=== PATIENT | female | born 1995 | race Caucasian/White ===

== ENCOUNTER → 2016-07-08 | Outpatient (CLI) | payer OTHER | END | disposition home or self-care (01) | LOC: MW.MNT 15:18 | PROVIDERS: ATTEND Obstetrics & Gynecology | DX: O24.419 Gestational diabetes mellitus in pregnancy, unspecified control (principal) | CPT/HCPCS: 97802 ==

== ENCOUNTER 2016-09-05 09:49 | Inpatient (IN) | payer OTHER ==
[2016-09-05] MEDS ORDERED: Sodium Chloride 0.9% 2.5 ML Syringe FLUSH PRN ×2 (10:14→13:36)
[2016-09-05] MEDS ORDERED: ceFAZolin 2 GM in Premix Bag 1 BAG IV ONE (10:14)
[2016-09-05] MEDS ORDERED: Sodium Chloride 0.9% 10 ML Syringe FLUSH PRN ×2 (10:14→13:36)
[2016-09-05] MEDS ORDERED: Citric Acid/Sodium Citrate Solution 30 ML Cup PO SCH (10:15)
[2016-09-05] MEDS ORDERED: Lactated Ringers 1,000 ML IV SCH ×2 (10:15→13:45)
[2016-09-05] MEDS ORDERED: ceFAZolin 1 GM Vial ONE (11:31)
[2016-09-05] MEDS ORDERED: Sodium Chloride 0.9% 20 ML ONE (11:32)
[2016-09-05] MEDS ORDERED: Oxytocin 10 Units/1 ML SDV ONE (11:32)
[2016-09-05] MEDS ORDERED: ePHEDrine 50 MG/ML SDV ONE (11:32)
[2016-09-05] MEDS ORDERED: Ondansetron 4 MG/2 ML SDV ONE (11:32)
[2016-09-05] MEDS ORDERED: Water For Injection, Sterile 20 ML ONE (11:35)
[2016-09-05] MEDS ORDERED: Morphine PF 10 MG/10 ML SDV ONE (11:35)
[2016-09-05] MEDS ORDERED: Acetaminophen/oxyCODONE 325-5 MG Tab PO PRN ×2 (12:35→13:36)
[2016-09-05] MEDS ORDERED: diphenhydrAMINE 50 MG/ML SDV IVPUSH PRN ×2 (12:36→13:36)
[2016-09-05] MEDS ORDERED: Nalbuphine 10 MG/1 ML Vial IVPUSH PRN (12:36)
[2016-09-05] MEDS ORDERED: Naloxone 0.4 MG/ML Syringe IVPUSH PRN (12:36)
[2016-09-05] MEDS ORDERED: Carboprost Tromethamine 250 MCG/1 ML Amp ONE (12:39)
[2016-09-05] MEDS ORDERED: Methylergonovine 0.2 MG/1 ML Amp ONE (12:39)
[2016-09-05] MEDS ORDERED: Metoclopramide 10 MG/2 ML SDV ONE (12:50)
--- NOTE | 2016-09-05 12:53 | PCM.PREANE ---
Preanesthetic Assessment - Anesthesia/Transfusion/Family Hx Anesthesia History: No Prior Anesthesia Family History of Anesthesia Reaction: No Transfusion History: No Prior Transfusion(s) Intubation History: Unknown - Review of Systems General: No Symptoms Pulmonary: No Symptoms Cardiovascular: No Symptoms Gastrointestinal: No symptoms Neurological: No Symptoms Other: Reports: None - Physical Assessment Height: 1.7 m Weight: 94.801 kg ASA Class: 2 Mental Status: Alert & Oriented x3 Airway Class: Mallampati = 1 Dentition: Reports: Normal Dentition Thyro-Mental Finger Breadths: 3 Mouth Opening Finger Breadths: 3 ROM/Head Extension: Full Lungs: Clear to auscultation, Normal respiratory effort Cardiovascular: Regular Rate, Regular Rhythm - Lab Values: Laboratory Last Values WBC 11.16 K/uL (4.0-11.0) H 09/05/16 10:24 RBC 4.01 M/uL (4.30-5.90) L 09/05/16 10:24 Hgb 12.0 g/dL (12.0-16.0) 09/05/16 10:24 Hct 36.0 % (36.0-46.0) 09/05/16 10:24 MCV 89.8 fL (80.0-98.0) 09/05/16 10:24 MCH 29.9 pg (27.0-32.0) 09/05/16 10:24 MCHC 33.3 g/dL (31.0-37.0) 09/05/16 10:24 RDW Std Deviation 48.4 fl (28.0-62.0) 09/05/16 10:24 RDW Coeff of Marcelina 15 % (11.0-15.0) 09/05/16 10:24 Plt Count 253 K/uL (150-400) 09/05/16 10:24 MPV 10.20 fL (7.40-12.00) 09/05/16 10:24 Nucleated RBC % 0.0 /100WBC 09/05/16 10:24 Nucleated RBCs # 0 K/uL 09/05/16 10:24 POC Glucose 79 mg/dL (60-110) 09/05/16 10:51 Blood Type A POSITIVE 09/05/16 10:24 Antibody Screen NEGATIVE 09/05/16 10:24 - Allergies Allergies/Adverse Reactions: Allergies Allergy/AdvReac Type Severity Reaction Status Date / Time No Known Allergies Allergy Verified 09/03/16 08:29 - Blood Blood Available: No - Anesthesia Plan Pre-Op Medication Ordered: None - Acknowledgements Anesthesia Type Planned: Spinal Pt an Appropriate Candidate for the Planned Anesthesia: Yes Alternatives and Risks of Anesthesia Discussed w Pt/Guardian: Yes Pt/Guardian Understands and Agrees with Anesthesia Plan: Yes 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: Endocrine/Metabolic History: Reports: Diabetes, Gestational, Obesity/BMI 30+ - Past Surgical History Head Surgeries/Procedures: Reports: None - SUBSTANCE USE Smoking Status *Q: Former Smoker Tobacco Use Within Last Twelve Months: Cigarettes Recreational Drug Use History: No - HOME MEDS Home Medications: Home Meds Ferrous Sulfate [Iron] 2 tab PO DAILY 09/03/16 [History] PNV95/Ferrous Fumarate/FA [ Vitamin Tablet] 1 tab PO DAILY 09/03/16 [ History] glyBURIDE [Glyburide] 2.5 mg PO BID 09/03/16 [History] - CURRENT (IN HOUSE) MEDS Current Meds: Current Medications Citric Acid/Sodium Citrate (Bicitra Solution) 30 ml PO .ONCE JEREMY Diphenhydramine HCl (Benadryl) 25 mg IVPUSH Q4H PRN PRN Reason: Pruritis Stop: 09/06/16 12:36 Lactated Ringer's (Ringers, Lactated) 1,000 mls @ 500 mls/hr IV .BOLUS JEREMY Last Admin: 09/05/16 10:30 Dose: 500 mls/hr Nalbuphine HCl (Nubain) 2.5 mg IVPUSH Q3H PRN PRN Reason: Pruritis Stop: 09/06/16 12:36 Naloxone HCl (Narcan) 0.1 mg IVPUSH ONETIME PRN PRN Reason: RR<6 WITH STIMULATION Stop: 09/06/16 12:37 Oxycodone/Acetaminophen (Percocet 325-5 Mg) 2 tab PO ONETIME PRN PRN Reason: Breakthrough Pain Stop: 09/06/16 12:30 Sodium Chloride (Saline Flush) 10 ml FLUSH ASDIRECTED PRN PRN Reason: Keep Vein Open Sodium Chloride (Saline Flush) 2.5 ml FLUSH ASDIRECTED PRN PRN Reason: Keep Vein Open Discontinued Medications Carboprost Tromethamine (Hemabate Ds) Confirm Administered Dose 250 mcg .ROUTE .STK-MED ONE Stop: 09/05/16 12:40 Cefazolin Sodium (Ancef) Confirm Administered Dose 2 gm .ROUTE .STK-MED ONE Stop: 09/05/16 11:32 Ephedrine Sulfate (Ephedrine Sulfate) Confirm Administered Dose 50 mg .ROUTE .STK-MED ONE Stop: 09/05/16 11:33 Cefazolin Sodium/Dextrose 2 gm (/ Premix) 50 mls @ 100 mls/hr IV ONETIME ONE Stop: 09/05/16 10:43 Sodium Chloride (Normal Saline) Confirm Administered Dose 20 mls @ as directed .ROUTE .STK-MED ONE Stop: 09/05/16 11:33 Sterile Water (Sterile Water For Injection) Confirm Administered Dose 20 mls @ as directed .ROUTE .STK-MED ONE Stop: 09/05/16 11:36 Methylergonovine Maleate (Methergine) Confirm Administered Dose 0.2 mg .ROUTE .STK-MED ONE Stop: 09/05/16 12:40 Morphine Sulfate (Duramorph Pf) Confirm Administered Dose 10 mg .ROUTE .STK-MED ONE Stop: 09/05/16 11:36 Ondansetron HCl (Zofran) Confirm Administered Dose 4 mg .ROUTE .STK-MED ONE Stop: 09/05/16 11:33 Oxytocin (Pitocin) Confirm Administered Dose 20 unit .ROUTE .STK-MED ONE Stop: 09/05/16 11:33
[2016-09-05] MEDS ORDERED: Lanolin 100% Cream 7 GM Tube TOP PRN (13:36)
[2016-09-05] MEDS ORDERED: Ibuprofen 800 MG Tab PO PRN (13:36)
[2016-09-05] MEDS ORDERED: Bisacodyl 10 MG Supp RECTAL PRN (13:36)
[2016-09-05] MEDS ORDERED: Ondansetron 4 MG/2 ML SDV IV PRN (13:36)
[2016-09-05] MEDS: fentaNYL 100 MCG/2 ML SDV IVPUSH PRN ×2 (13:41→13:51)
[2016-09-05] MEDS: Ketorolac 30 MG/ML SDV IVPUSH SCH ×2 (13:48→20:26)
--- NOTE | 2016-09-05 13:48 | PCM.OPNOTE ---
- General Post-Op/Procedure Note Date of Surgery/Procedure: 09/05/16 Operative Procedure(s): Primary section Findings: Maximilian Breech presentation. Female, Wt 3860grams, Apgars 9 and 9. Normal appearing uterus, tubes and ovaries. Pre Op Diagnosis: Breech Presentation at term Post-Op Diagnosis: Same Anesthesia Technique: Spinal Primary Surgeon: Ana Moon Fluid Replacement, Intraop: 1,200 Output, Urine Amount: 200 EBL in mLs: 700 Complications: None Condition: Good Free Text/Narrative:: Intake & Output 09/04/16 09/05/16 09/05/16 22:59 06:59 14:59 Output Total 200 Balance -200
--- NOTE | 2016-09-05 13:51 | PCM.POSTAN ---
POST ANESTHESIA ASSESSMENT - MENTAL STATUS Mental Status: alert, oriented - VITAL SIGNS Pulse Rate: 78 SaO2: 98 Resp Rate: 14 Blood Pressure: 138/77 - RESPIRATORY Respiratory Status: respiratory rate WNL, airway patent, O2 saturation stable - CARDIOVASCULAR CV Status: pulse rate WNL, blood pressure stable - GASTROINTESTINAL GI Status: no symptoms - PAIN Pain Score: 4 (will receive one additional dose prior to discharge from PACU) - POST OP HYDRATION Hydration Status: adequate & stable - OBSERVATIONS Free Text/Narrative:: Pt not having any nausea postop (significant intraop). Pain significantly better with IV Fentanyl - will give one more dose prior to discharge from PACU. Pt stable.
[2016-09-05] MEDS: Docusate Sodium 100 MG Cap PO SCH (20:27)
--- NOTE | 2016-09-06 00:49 | OR ---
SURGEON: Ana Moon MD DATE OF PROCEDURE: 09/05/2016 PREOPERATIVE DIAGNOSES: 1. Term at 39 weeks gestation. 2. Malpresentation at term, breech presentation. 3. Gestational diabetes, Type A2- controlled on glyburide. POSTOPERATIVE DIAGNOSES: 1. Term at 39 weeks gestation. 2. Malpresentation at term, breech presentation. 3. Gestational diabetes, Type A2- controlled on glyburide. 4. Delivered. PROCEDURE: Primary low transverse section via Pfannenstiel. ANESTHESIA: Spinal. ESTIMATED BLOOD LOSS: 700 mL. IV FLUIDS: 1200 mL of crystalloid. URINE OUTPUT: 200 mL. COMPLICATIONS: None. DISPOSITION: Stable to recovery room. FINDINGS: Female , elizabeth breech presentation. Weight 3860 g. Apgars 9 and 9 at 1 and 5 minutes respectively. Grossly normal uterus, tubes, and ovaries. Grossly normal placenta with 3-vessel cord. INDICATION: Paula is a primigravida at 39 weeks gestation, who presented today for primary low transverse section for breech presentation at term, declined external cephalic version. was also complicated by gestational diabetes, controlled on oral hypoglycemics. DESCRIPTION OF PROCEDURE: The patient was taken to the operating room, where spinal anesthesia was performed and found to be adequate. She was then placed in dorsal lithotomy position with leftward tilt, prepped and draped in a normal sterile fashion for section. Ancef 2 g were given. Appropriate time-out was held. Pfannenstiel skin incision was made with a scalpel and carried through to the underlying fascia with the Bovie scored in the midline and the fascia was extended laterally with the Bovie. The superior aspect of the fascial incision was grasped with 2 Josee clamps, elevated, underlying rectus muscle was dissected off with the Bovie. Attention was turned to the inferior aspect of the fascial incision, which in similar fashion was picked up with 2 Josee clamps, elevated, and rectus muscle was dissected off with the Bovie. The rectus muscle was in the midline and the parietal peritoneum was reached. This was entered sharply with the Metzenbaum scissors and extended upwards and downwards with good visualization of the bladder and other internal organs. It was further extended laterally by stretching. A bladder blade was inserted. The vesicouterine peritoneum was identified, picked up with the pickups and entered sharply with the Metzenbaum scissors and a bladder flap was created digitally. A low transverse uterine incision was made and extended upwards and downwards manually. The bladder blade was removed. The infant's buttocks were lifted out of the pelvis and was delivered followed by the legs and the feet. The body was delivered to the nape of the neck and the infant was turned on either sides and shoulders were then delivered atraumatically. The head was then 's head delivered without difficulties. Nuchal cord was noted. The infant was vigorous and cried spontaneously at . The cord was double clamped and cut and the was handed over to the awaiting nursery staff. Cord blood and gas samples were obtained. The placenta was delivered by manual extraction. Uterus was exteriorized and cleared of all clots and debris. The hysterotomy site was repaired with 2 layers using 0 Vicryl suture, first layer was repaired in a running locked fashion and a second imbricating layer was performed to obtain excellent hemostasis. The gutters were cleaned of all clots and debris and the uterus was returned back into the abdominal cavity. The hysterotomy site was examined and found to be completely hemostatic. The peritoneal edges were identified and the peritoneum was closed with 2-0 Vicryl in a running fashion. The muscular layer was then reapproximated with 2 mattress sutures using 2-0 Vicryl suture. Subfascial layer was found to be hemostatic. The fascia was then closed using 0 Vicryl suture in a running fashion. The subcuticular layer was made hemostatic with electrocautery. The skin was closed using subcuticular stitches with 4-0 Monocryl suture. The patient tolerated the procedure well. Sponge, instrument, and needle counts were correct at the end of the procedure. The patient was taken to the recovery room in stable condition and the baby stable to [facility]. ADUMVIV / BRUNAL /[id number] LEWIS
[2016-09-06] MEDS: Ketorolac 30 MG/ML SDV IVPUSH SCH ×3 (02:34→14:45)
--- NOTE | 2016-09-06 09:57 | PCM48HPAN ---
Post Anesthesia Note - EVALUATION WITHIN 48HRS OF ANESTHETIC Vital Signs in Normal Range: Yes Patient Participated in Evaluation: Yes Respiratory Function Stable: Yes Airway Patent: Yes Cardiovascular Function Stable: Yes Hydration Status Stable: Yes Pain Control Satisfactory: Yes Nausea and Vomiting Control Satisfactory: Yes Mental Status Recovered: Yes
[2016-09-06] MEDS: Docusate Sodium 100 MG Cap PO SCH ×2 (10:08→20:59)
--- NOTE | 2016-09-06 16:26 | PCM.PNPP ---
- General Info Date of Service: 09/06/16 Functional Status: Reports: pain controlled, tolerating diet, ambulating, urinating - Review of Systems General: Denies: Fever, Weakness, Fatigue, Chills HEENT: Denies: headaches Pulmonary: Denies: shortness of breath, pleuritic chest pain Cardiovascular: Denies: Chest Pain, Palpitations, Dyspnea on Exertion Genitourinary: Denies: dysuria, flank pain Musculoskeletal: Reports: no symptoms Skin: Reports: no symptoms Neurological: Reports: No Symptoms Psychiatric: Reports: no symptoms - General Info Date of Service: 09/06/16 - Patient Data Vital Signs - most recent: Last Vital Signs Temp 37.0 C 09/06/16 13:22 Pulse 68 09/06/16 13:22 Resp 18 09/06/16 13:22 BP 124/65 09/06/16 13:22 Pulse Ox 98 09/06/16 13:22 Weight - most recent: 209 lb I&O - last 24 hours: Intake & Output 09/06/16 09/06/16 09/06/16 06:59 14:59 22:59 Output Total 3700 1000 Balance -3700 -1000 Lab Results - last 24 hrs: Laboratory Results - last 24 hr 09/06/16 09/06/16 Range/Units 06:10 06:11 Hgb 10.3 L (12.0-16.0) g/dL Hct 30.9 L (36.0-46.0) % POC Glucose 122 H (60-110) mg/dL Med Orders - Current: Current Medications Bisacodyl (Dulcolax) 10 mg RECTAL .ONCE PRN PRN Reason: Constipation Diphenhydramine HCl (Benadryl) 25 mg IVPUSH Q6H PRN PRN Reason: Itching or Nausea Docusate Sodium (Colace) 100 mg PO BID JEREMY Last Admin: 09/06/16 10:08 Dose: 100 mg Emollient Ointment (Lansinoh Hpa) 0 gm TOP ASDIRECTED PRN PRN Reason: Sore Nipples Fentanyl (Sublimaze) 50 mcg IVPUSH .Q5MIN PRN PRN Reason: Pain Stop: 09/09/16 13:28 Last Admin: 09/05/16 13:51 Dose: 50 mcg Lactated Ringer's (Ringers, Lactated) 1,000 mls @ 125 mls/hr IV ASDIRECTED JEREMY Last Admin: 09/05/16 21:03 Dose: 125 mls/hr Ibuprofen (Motrin) 800 mg PO Q8H PRN PRN Reason: mild pain or fever Ondansetron HCl (Zofran) 4 mg IV Q4H PRN PRN Reason: Nausea/Vomiting Last Admin: 09/05/16 17:36 Dose: 4 mg Oxycodone/Acetaminophen (Percocet 325-5 Mg) 1 tab PO Q4H PRN PRN Reason: Pain (moderate 4-6) Last Admin: 09/06/16 14:45 Dose: 1 tab Oxycodone/Acetaminophen (Percocet 325-5 Mg) 2 tab PO Q4H PRN PRN Reason: Pain (moderate 4-6) Sodium Chloride (Saline Flush) 10 ml FLUSH ASDIRECTED PRN PRN Reason: Keep Vein Open Sodium Chloride (Saline Flush) 2.5 ml FLUSH ASDIRECTED PRN PRN Reason: Keep Vein Open Discontinued Medications Carboprost Tromethamine (Hemabate Ds) Confirm Administered Dose 250 mcg .ROUTE .STK-MED ONE Stop: 09/05/16 12:40 Cefazolin Sodium (Ancef) Confirm Administered Dose 2 gm .ROUTE .STK-MED ONE Stop: 09/05/16 11:32 Citric Acid/Sodium Citrate (Bicitra Solution) 30 ml PO .ONCE JEERMY Diphenhydramine HCl (Benadryl) 25 mg IVPUSH Q4H PRN PRN Reason: Pruritis Stop: 09/06/16 12:36 Ephedrine Sulfate (Ephedrine Sulfate) Confirm Administered Dose 50 mg .ROUTE .STK-MED ONE Stop: 09/05/16 11:33 Lactated Ringer's (Ringers, Lactated) 1,000 mls @ 500 mls/hr IV .BOLUS JEREMY Last Admin: 09/05/16 10:30 Dose: 500 mls/hr Cefazolin Sodium/Dextrose 2 gm (/ Premix) 50 mls @ 100 mls/hr IV ONETIME ONE Stop: 09/05/16 10:43 Sodium Chloride (Normal Saline) Confirm Administered Dose 20 mls @ as directed .ROUTE .STK-MED ONE Stop: 09/05/16 11:33 Sterile Water (Sterile Water For Injection) Confirm Administered Dose 20 mls @ as directed .ROUTE .STK-MED ONE Stop: 09/05/16 11:36 Ketorolac Tromethamine (Toradol) 30 mg IVPUSH Q6H JEREMY Stop: 09/06/16 13:46 Last Admin: 09/06/16 14:45 Dose: 30 mg Methylergonovine Maleate (Methergine) Confirm Administered Dose 0.2 mg .ROUTE .STK-MED ONE Stop: 09/05/16 12:40 Metoclopramide HCl (Reglan) Confirm Administered Dose 10 mg .ROUTE .STK-MED ONE Stop: 09/05/16 12:51 Morphine Sulfate (Duramorph Pf) Confirm Administered Dose 10 mg .ROUTE .STK-MED ONE Stop: 09/05/16 11:36 Nalbuphine HCl (Nubain) 2.5 mg IVPUSH Q3H PRN PRN Reason: Pruritis Stop: 09/06/16 12:36 Naloxone HCl (Narcan) 0.1 mg IVPUSH ONETIME PRN PRN Reason: RR<6 WITH STIMULATION Stop: 09/06/16 12:37 Ondansetron HCl (Zofran) Confirm Administered Dose 4 mg .ROUTE .STK-MED ONE Stop: 09/05/16 11:33 Oxycodone/Acetaminophen (Percocet 325-5 Mg) 2 tab PO ONETIME PRN PRN Reason: Breakthrough Pain Stop: 09/06/16 12:30 Last Admin: 09/06/16 10:08 Dose: 2 tab Oxytocin (Pitocin) Confirm Administered Dose 20 unit .ROUTE .STK-MED ONE Stop: 09/05/16 11:33 Sodium Chloride (Saline Flush) 10 ml FLUSH ASDIRECTED PRN PRN Reason: Keep Vein Open Sodium Chloride (Saline Flush) 2.5 ml FLUSH ASDIRECTED PRN PRN Reason: Keep Vein Open - Infant Interaction Disposition, : [place] in Room with Family Feeding: Bottle Fed Support Person: Mother - Recovery Exam Fundal Tone: Firm Fundal Level: 1 Fingerbreadths Below Umbilicus Fundal Placement: Midline Lochia Amount: Scant Lochia Color: Brownish Perineum Description: Intact, Minimal Bruising/Swelling Episiotomy/Laceration: None Bladder Status: Nonpalpable Urinary Elimination: Voided - Exam General: alert HEENT: Pupils equal Lungs: Clear to auscultation, Normal respiratory effort Cardiovascular: Regular Rate, Regular Rhythm Abdomen: bowel sounds present, soft, no tenderness, no distension Extremities: no calf tenderness, edema Wound/Incisions: healing well Psy/Mental Status: alert, normal affect, normal mood - Problem List & Annotations (1) delivery delivered SNOMED Code(s): 696477495 Code(s): O82 - ENCOUNTER FOR DELIVERY WITHOUT INDICATION Status: Acute Current Visit: Yes (2) Gestational diabetes mellitus (GDM) during controlled on oral hypoglycemic therapy SNOMED Code(s): 72874471, 03918244, 775862031 Code(s): O24.415 - GESTATNL DIABETES IN PREG, CTRL BY ORAL HYPOGLYCEMIC DRUGS Status: Acute Current Visit: Yes - Problem List Review Problem List Initiated/Reviewed/Updated: Yes - My Orders Last 24 Hours: My Active Orders 09/05/16 21:00 Docusate Sodium [Colace] 100 mg PO BID 09/05/16 Dinner Regular Diet [DIET] 09/06/16 05:00 Blood Glucose Check, Bedside [RC] ONETIME - Assessment Assessment:: POD#1 s/p Primary C/S for breech presentation. Doing weel, minimal lochia, pain well controlled and ambulatory - Plan Plan:: Continue current care Aim for discharge tomorrow
[2016-09-06] MEDS: Acetaminophen/oxyCODONE 325-5 MG Tab PO PRN (20:57)
[2016-09-07] MEDS: Acetaminophen/oxyCODONE 325-5 MG Tab PO PRN (05:04)
[2016-09-07] MEDS: Docusate Sodium 100 MG Cap PO SCH (08:15)
[2016-09-07 08:32] VITALS: BP 119/77
--- NOTE | 2016-09-07 11:05 | PCM.PNPP ---
- General Info Date of Service: 09/07/16 Functional Status: Reports: pain controlled, tolerating diet, ambulating, urinating - Review of Systems General: Denies: Fever, Weakness, Chills Pulmonary: Denies: shortness of breath, pleuritic chest pain Cardiovascular: Denies: Chest Pain, Palpitations, Dyspnea on Exertion Gastrointestinal: Reports: Abdominal pain Genitourinary: Denies: dysuria, flank pain Neurological: Denies: Headache - General Info Date of Service: 09/07/16 - Patient Data Vital Signs - most recent: Last Vital Signs Temp 37.0 C 09/07/16 08:00 Pulse 89 09/07/16 08:00 Resp 17 09/07/16 08:00 BP 119/77 09/07/16 08:00 Pulse Ox 96 09/07/16 08:00 Weight - most recent: 209 lb Med Orders - Current: Current Medications Bisacodyl (Dulcolax) 10 mg RECTAL .ONCE PRN PRN Reason: Constipation Diphenhydramine HCl (Benadryl) 25 mg IVPUSH Q6H PRN PRN Reason: Itching or Nausea Docusate Sodium (Colace) 100 mg PO BID [facility] Last Admin: 09/07/16 08:15 Dose: 100 mg Emollient Ointment (Lansinoh Hpa) 0 gm TOP ASDIRECTED PRN PRN Reason: Sore Nipples Fentanyl (Sublimaze) 50 mcg IVPUSH .Q5MIN PRN PRN Reason: Pain Stop: 09/09/16 13:28 Last Admin: 09/05/16 13:51 Dose: 50 mcg Lactated Ringer's (Ringers, Lactated) 1,000 mls @ 125 mls/hr IV ASDIRECTED [facility] Last Admin: 09/05/16 21:03 Dose: 125 mls/hr Ibuprofen (Motrin) 800 mg PO Q8H PRN PRN Reason: mild pain or fever Last Admin: 09/07/16 10:31 Dose: 800 mg Ondansetron HCl (Zofran) 4 mg IV Q4H PRN PRN Reason: Nausea/Vomiting Last Admin: 09/05/16 17:36 Dose: 4 mg Oxycodone/Acetaminophen (Percocet 325-5 Mg) 1 tab PO Q4H PRN PRN Reason: Pain (moderate 4-6) Last Admin: 09/06/16 14:45 Dose: 1 tab Oxycodone/Acetaminophen (Percocet 325-5 Mg) 2 tab PO Q4H PRN PRN Reason: Pain (moderate 4-6) Last Admin: 09/07/16 05:04 Dose: 2 tab Sodium Chloride (Saline Flush) 10 ml FLUSH ASDIRECTED PRN PRN Reason: Keep Vein Open Sodium Chloride (Saline Flush) 2.5 ml FLUSH ASDIRECTED PRN PRN Reason: Keep Vein Open Discontinued Medications Carboprost Tromethamine (Hemabate Ds) Confirm Administered Dose 250 mcg .ROUTE .STK-MED ONE Stop: 09/05/16 12:40 Cefazolin Sodium (Ancef) Confirm Administered Dose 2 gm .ROUTE .STK-MED ONE Stop: 09/05/16 11:32 Citric Acid/Sodium Citrate (Bicitra Solution) 30 ml PO .ONCE JEREMY Diphenhydramine HCl (Benadryl) 25 mg IVPUSH Q4H PRN PRN Reason: Pruritis Stop: 09/06/16 12:36 Ephedrine Sulfate (Ephedrine Sulfate) Confirm Administered Dose 50 mg .ROUTE .STK-MED ONE Stop: 09/05/16 11:33 Lactated Ringer's (Ringers, Lactated) 1,000 mls @ 500 mls/hr IV .BOLUS JEREMY Last Admin: 09/05/16 10:30 Dose: 500 mls/hr Cefazolin Sodium/Dextrose 2 gm (/ Premix) 50 mls @ 100 mls/hr IV ONETIME ONE Stop: 09/05/16 10:43 Sodium Chloride (Normal Saline) Confirm Administered Dose 20 mls @ as directed .ROUTE .STK-MED ONE Stop: 09/05/16 11:33 Sterile Water (Sterile Water For Injection) Confirm Administered Dose 20 mls @ as directed .ROUTE .STK-MED ONE Stop: 09/05/16 11:36 Ketorolac Tromethamine (Toradol) 30 mg IVPUSH Q6H JEREMY Stop: 09/06/16 13:46 Last Admin: 09/06/16 14:45 Dose: 30 mg Methylergonovine Maleate (Methergine) Confirm Administered Dose 0.2 mg .ROUTE .STK-MED ONE Stop: 09/05/16 12:40 Metoclopramide HCl (Reglan) Confirm Administered Dose 10 mg .ROUTE .STK-MED ONE Stop: 09/05/16 12:51 Morphine Sulfate (Duramorph Pf) Confirm Administered Dose 10 mg .ROUTE .STK-MED ONE Stop: 09/05/16 11:36 Nalbuphine HCl (Nubain) 2.5 mg IVPUSH Q3H PRN PRN Reason: Pruritis Stop: 09/06/16 12:36 Naloxone HCl (Narcan) 0.1 mg IVPUSH ONETIME PRN PRN Reason: RR<6 WITH STIMULATION Stop: 09/06/16 12:37 Ondansetron HCl (Zofran) Confirm Administered Dose 4 mg .ROUTE .STK-MED ONE Stop: 09/05/16 11:33 Oxycodone/Acetaminophen (Percocet 325-5 Mg) 2 tab PO ONETIME PRN PRN Reason: Breakthrough Pain Stop: 09/06/16 12:30 Last Admin: 09/06/16 10:08 Dose: 2 tab Oxytocin (Pitocin) Confirm Administered Dose 20 unit .ROUTE .STK-MED ONE Stop: 09/05/16 11:33 Sodium Chloride (Saline Flush) 10 ml FLUSH ASDIRECTED PRN PRN Reason: Keep Vein Open Sodium Chloride (Saline Flush) 2.5 ml FLUSH ASDIRECTED PRN PRN Reason: Keep Vein Open - Infant Interaction Disposition, : in Room with Family Feeding: Bottle Fed Support Person: Mother, Significant Other - Recovery Exam Fundal Tone: Firm Fundal Level: 1 Fingerbreadths Below Umbilicus Fundal Placement: Midline Lochia Amount: Scant Lochia Color: Rubra/Red Perineum Description: Intact, Minimal Bruising/Swelling Episiotomy/Laceration: None Bladder Status: Voiding Urinary Elimination: Voided - Exam General: alert, oriented HEENT: Pupils equal Lungs: Clear to auscultation, Normal respiratory effort Cardiovascular: Regular Rate, Regular Rhythm Abdomen: bowel sounds present, soft, no tenderness, no distension Extremities: no calf tenderness, edema Skin: warm Wound/Incisions: healing well Psy/Mental Status: alert, normal affect, normal mood - Problem List & Annotations (1) delivery delivered SNOMED Code(s): 285319902 Code(s): O82 - ENCOUNTER FOR DELIVERY WITHOUT INDICATION Status: Acute Current Visit: Yes (2) Gestational diabetes mellitus (GDM) during controlled on oral hypoglycemic therapy SNOMED Code(s): 44970996, 56370889, 493950281 Code(s): O24.415 - GESTATNL DIABETES IN PREG, CTRL BY ORAL HYPOGLYCEMIC DRUGS Status: Acute Current Visit: Yes - Problem List Review Problem List Initiated/Reviewed/Updated: Yes - Assessment Assessment:: POD#1 s/p Primary C/S for breech presentation.Stable and afebrile Clinically stable fro discharge today - Plan Plan:: Discharge instructions reviewed Nothing in the vagina fro 6 weeks Bleeding and infection precautions reviewed Continue PNV. Prescription given for narcotics. Stop glyburide Keep incision clean and dry Follow up in 2 and 6 weeks
== END 2016-09-07 12:45 | disposition home or self-care (01) | DRG 766 ==
LOC: MW.OB 09:49
PROVIDERS: ADMIT Obstetrics & Gynecology; ATTEND Obstetrics & Gynecology
PROC: 10D00Z1 Extraction of Products of Conception, Low, Open Approach (ICD-10-PCS; principal; 2016-09-05)
DX: O32.1XX0 Maternal care for breech presentation, not applicable or unspecified (principal); O24.425 Gestational diabetes mellitus in childbirth, controlled by oral hypoglycemic drugs; Z3A.39 39 weeks gestation of pregnancy; Z37.0 Single live birth
CPT/HCPCS: 01961; 36415; 82962; 85014; 85018; 85027; 86850; 86900; 86901; A9270-GY; J0690; J1885; J2210; J2270; J2405; J2590; J2765; J3010; J7120

== ENCOUNTER 2020-10-15 14:27 | Emergency (ER) | payer BC, OTHER ==
--- NOTE | 2020-10-15 15:38 | PCM.EKG ---
#1 Interpretation EKG Date: 10/15/20 Time: 15:32 Rhythm: NSR Rate (Beats/Min): 85 [place]: Normal P-Wave: Present QRS: Normal ST-T: Normal QT: Normal Comparison: NA - No Prior EKG EKG Interpretation Comments: Sinus Rhythm
--- NOTE | 2020-10-15 16:27 | CR ---
For Patients: As a result of the Century Cures Act, medical imaging exams and procedure reports are released immediately into your electronic medical record. You may view this report before your referring provider. If you have questions, please contact your health care provider. INDICATION: dizziness TECHNIQUE: Chest 1 view. COMPARISON: None. FINDINGS: Cardiovascular and mediastinum: Heart size and vasculature are normal in caliber and appearance. Mediastinum is within normal limits. Lungs and pleural space: Lungs are clear. No sign of infiltrate or mass. No sign of pleural effusion. No pneumothorax. Bones and soft tissues: No significant findings. IMPRESSION: Unremarkable chest. Dictated by: Pablito Vera MD @ 10/15/2020 16:25:40 (Electronically Signed)
[2020-10-15 17:13] LABS: BLOOD UREA NITROGEN,BUN 13 mg/dL (7.0-18.0); CHLORIDE,CL 103 mmol/L (98-107); GLUCOSE RANDOM 109 mg/dL (74-106); POTASSIUM,K 3.6 mmol/L (3.5-5.1); SODIUM,NA 142 mmol/L (136-145)
--- NOTE | 2020-10-15 17:20 | EDM.PDOC ---
ED HPI GENERAL MEDICAL PROBLEM - General Chief Complaint: General Stated Complaint: dizziness Time Seen by Provider: 10/15/20 14:47 Source of Information: Reports: Patient History Limitations: Reports: No Limitations - History of Present Illness INITIAL COMMENTS - FREE TEXT/NARRATIVE: HISTORY AND PHYSICAL: History of present illness: Patient is a 24-year-old female who presents to the ED today with concern of an episode of dizziness/feeling like the room was spinning that occurred just prior to arrival to the ED. 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 Patient states that after sitting for a bit, her symptoms resolved after a few minutes. Patient states that her coworkers were concerned because she looked flushed during the event. Patient states that she has not had this exact scenario occur before but states she did have a similar episode 1 year ago. Patient denies any head injury or loss of consciousness. Patient states she does have a history of frequent headaches and currently has a dull headache which is typical of her usual headaches. Patient denies any other symptoms or concerns. Patient denies fever, chills, chest pain, shortness of breath, or cough. Denies neck stiff ness, change in vision, syncope, or near syncope. Denies nausea, vomiting, abdominal pain, diarrhea, constipation, or dysuria. Has not noted any blood in urine or stool. Patient has been eating and drinking appropriately. Review of systems: As per history of present illness and below otherwise all systems reviewed and negative. Past medical history: As per history of present illness and as reviewed below otherwise noncontributory. Surgical history: As per history of present illness and as reviewed below otherwise noncontributory. Social history: See social history for further information Family history: As per history of present illness and as reviewed below otherwise noncontributory. Physical exam: General: Patient is alert, oriented, and in no acute distress. Patient sitting comfortably on exam table. Vitals stable and reviewed by me. HEENT: Atraumatic, normocephalic, pupils equal and reactive bilaterally, negative for conjunctival pallor or scleral icterus, mucous membranes moist, TMs normal bilaterally, throat clear, neck supple, nontender, trachea midline. No drooling or trismus noted. No meningeal signs. No hot potato voice noted. Lungs: Clear to auscultation, breath sounds equal bilaterally, chest nontender. Heart: S1S2, regular rate and rhythm without overt murmur Abdomen: Soft, nondistended, nontender. Negative for masses or hepatosplenomegaly. Negative for costovertebral tenderness. Pelvis: Stable nontender. Genitourinary: Deferred. Rectal: Deferred. Skin: Intact, warm, dry. No lesions or rashes noted. Extremities: Atraumatic, negative for cords or calf pain. Neurovascular unremarkable. Neuro: Awake, alert, oriented. Cranial nerves II through XII unremarkable. Cerebellum unremarkable. Motor and sensory unremarkable throughout. Exam nonfocal. Notes: Patient is a 24-year-old female who presents to the ED today secondary to a few minute episode of dizziness/room spinning that occurred and resolved prior to arrival to the ED. Upon arrival to the ED, patient is vitally stable and well- appearing on exam. No neuro focal deficits. Will obtain cardiac evaluation and basic lab work at this time. See Dr. Maurer's dictation for specific EKG interpretation. However, normal sinus rhythm without STEMI. CBC unremarkable. CMP shows a mild elevated glucose at 109, negative troponin, TSH within normal limits at 1.56. hCG negative. Urinalysis clear. Chest x-ray is unremarkable. Upon reevaluation of patient, she remains vitally stable and comfortable throughout stay in ED does not have any continued episodes of dizziness/room spinning. Strict return precautions thoroughly discussed with patient. Discussed importance of follow-up with a primary care provider. Voices understanding and is agreeable to plan of care. Denies any further questions or concerns at this time. Diagnostics: EKG, CBC, CMP, UA, serum hCG, TSH, chest x-ray Therapeutics: None Prescription: None Impression: Dizziness, resolved Plan: 1. Encourage small but frequent sips of fluid to prevent dehydration. 2. Follow-up with primary care provider as discussed. Return to the ED as needed as discussed. Definitive disposition and diagnosis as appropriate pending reevaluation and review of above. - Related Data Allergies Allergy/AdvReac Type Severity Reaction Status Date / Time No Known Allergies Allergy Verified 10/15/20 15:27 Home Meds: Home Meds . 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: Musculoskeletal History: Reports: None Neurological History: Reports: None Psychiatric History: Reports: None Endocrine/Metabolic History: Reports: Diabetes, Gestational, Obesity/BMI 30+ Hematologic History: Reports: None Immunologic History: Reports: None Oncologic (Cancer) History: Reports: None Dermatologic History: Reports: None - Infectious Disease History Infectious Disease History: Reports: None - Past Surgical History Head Surgeries/Procedures: Reports: None HEENT Surgical History: Reports: None Cardiovascular Surgical History: Reports: None Respiratory Surgical History: Reports: None GI Surgical History: Reports: None Female Surgical History: Reports: Section Endocrine Surgical History: Reports: None Neurological Surgical History: Reports: None Musculoskeletal Surgical History: Reports: None Oncologic Surgical History: Reports: None Dermatological Surgical History: Reports: None Social & Family History - Family History Family Medical History: No Pertinent Family History - Tobacco Use Tobacco Use Status *Q: Never Tobacco User - Caffeine Use Caffeine Use: Reports: None - Recreational Drug Use Recreational Drug Use: No ED ROS GENERAL - Review of Systems Review Of Systems: Comprehensive ROS is negative, except as noted in HPI. ED EXAM, GENERAL - Physical Exam Exam: See Below (see dictation) Course - Vital Signs Last Recorded V/S: Last Vital Signs Temp 98 F 10/15/20 17:43 Pulse 80 10/15/20 17:43 Resp 17 10/15/20 15:23 BP 119/71 10/15/20 17:43 Pulse Ox 96 10/15/20 17:43 - Orders/Labs/Meds Labs: Laboratory Tests 10/15/20 10/15/20 10/15/20 Range/Units 15:30 15:35 15:35 WBC (4.0-11.0) K/uL RBC (4.30-5.90) M/uL Hgb (12.0-16.0) g/dL Hct (36.0-46.0) % MCV (80.0-98.0) fL MCH (27.0-32.0) pg MCHC (31.0-37.0) g/dL RDW Std Deviation (28.0-62.0) fl RDW Coeff of Marcelina (11.0-15.0) % Plt Count (150-400) K/uL MPV (7.40-12.00) fL Neut % (Auto) (48.0-80.0) % Lymph % (Auto) (16.0-40.0) % [place] % (Auto) (0.0-15.0) % Eos % (Auto) (0.0-7.0) % Baso % (Auto) (0.0-1.5) % Neut # (Auto) (1.4-5.7) K/uL Lymph # (Auto) (0.6-2.4) K/uL [place] # (Auto) (0.0-0.8) K/uL Eos # (Auto) (0.0-0.7) K/uL Baso # (Auto) (0.0-0.1) K/uL Nucleated RBC % /100WBC Nucleated RBCs # K/uL Sodium (136-145) mmol/L Potassium (3.5-5.1) mmol/L Chloride (98-107) mmol/L Carbon Dioxide (21.0-32.0) mmol/L BUN (7.0-18.0) mg/dL Creatinine (0.6-1.0) mg/dL Est Cr Clr Drug Dosing mL/min Estimated GFR (MDRD) ml/min Glucose (74-106) mg/dL POC Glucose 113 H (70-99) mg/dL Calcium (8.5-10.1) mg/dL Total Bilirubin (0.2-1.0) mg/dL AST (15-37) IU/L ALT (14-63) IU/L Alkaline Phosphatase (46-116) U/L Troponin I (0.000-0.056) ng/mL Total Protein (6.4-8.2) g/dL Albumin (3.4-5.0) g/dL Globulin (2.6-4.0) g/dL Albumin/Globulin Ratio (0.9-1.6) TSH 3rd Generation (0.36-3.74) uIU/mL Urine Color YELLOW Urine Appearance CLEAR Urine pH 5.5 (5.0-8.0) Ur Specific [place] <= 1.005 (1.001-1.035) Urine Protein NEGATIVE (NEGATIVE) mg/dL Urine Glucose (UA) NEGATIVE (NEGATIVE) mg/dL Urine Ketones NEGATIVE (NEGATIVE) mg/dL Urine Occult Blood NEGATIVE (NEGATIVE) Urine Nitrite NEGATIVE (NEGATIVE) Urine Bilirubin NEGATIVE (NEGATIVE) Urine Urobilinogen 0.2 (<2.0) EU/dL Ur Leukocyte Esterase NEGATIVE (NEGATIVE) Urine HCG, Qual NEGATIVE (NEGATIVE) 10/15/20 10/15/20 10/15/20 Range/Units 16:32 16:32 16:32 WBC 8.78 (4.0-11.0) K/uL RBC 4.56 (4.30-5.90) M/uL Hgb 13.9 (12.0-16.0) g/dL Hct 40.9 (36.0-46.0) % MCV 89.7 (80.0-98.0) fL MCH 30.5 (27.0-32.0) pg MCHC 34.0 (31.0-37.0) g/dL RDW Std Deviation 42.2 (28.0-62.0) fl RDW Coeff of Marcelina 13 (11.0-15.0) % Plt Count 354 (150-400) K/uL MPV 10.40 (7.40-12.00) fL Neut % (Auto) 73.5 (48.0-80.0) % Lymph % (Auto) 20.3 (16.0-40.0) % [place] % (Auto) 5.1 (0.0-15.0) % Eos % (Auto) 0.8 (0.0-7.0) % Baso % (Auto) 0.3 (0.0-1.5) % Neut # (Auto) 6.5 H (1.4-5.7) K/uL Lymph # (Auto) 1.8 (0.6-2.4) K/uL [place] # (Auto) 0.5 (0.0-0.8) K/uL Eos # (Auto) 0.1 (0.0-0.7) K/uL Baso # (Auto) 0.0 (0.0-0.1) K/uL Nucleated RBC % 0.0 /100WBC Nucleated RBCs # 0 K/uL Sodium 142 (136-145) mmol/L Potassium 3.6 (3.5-5.1) mmol/L Chloride 103 (98-107) mmol/L Carbon Dioxide 26.0 (21.0-32.0) mmol/L BUN 13 (7.0-18.0) mg/dL Creatinine 0.8 (0.6-1.0) mg/dL Est Cr Clr Drug Dosing 108.44 mL/min Estimated GFR (MDRD) > 60.0 ml/min Glucose 109 H (74-106) mg/dL POC Glucose (70-99) mg/dL Calcium 9.4 (8.5-10.1) mg/dL Total Bilirubin 0.5 (0.2-1.0) mg/dL AST 16 (15-37) IU/L ALT 26 (14-63) IU/L Alkaline Phosphatase 93 (46-116) U/L Troponin I < 0.050 (0.000-0.056) ng/mL Total Protein 8.5 H (6.4-8.2) g/dL Albumin 4.2 (3.4-5.0) g/dL Globulin 4.3 H (2.6-4.0) g/dL Albumin/Globulin Ratio 1.0 (0.9-1.6) TSH 3rd Generation 1.56 (0.36-3.74) uIU/mL Urine Color Urine Appearance Urine pH (5.0-8.0) Ur Specific [place] (1.001-1.035) Urine Protein (NEGATIVE) mg/dL Urine Glucose (UA) (NEGATIVE) mg/dL Urine Ketones (NEGATIVE) mg/dL Urine Occult Blood (NEGATIVE) Urine Nitrite (NEGATIVE) Urine Bilirubin (NEGATIVE) Urine Urobilinogen (<2.0) EU/dL Ur Leukocyte Esterase (NEGATIVE) Urine HCG, Qual (NEGATIVE) Departure - Departure Time of Disposition: 17:19 Disposition: Home, Self-Care 01 Clinical Impression: Dizziness - Discharge Information Instructions: Dizziness, [id number] Referrals: PCP,None [Primary Care Provider] - Forms: ED Department Discharge Additional Instructions: The following information is given to patients seen in the emergency department who are being discharged to home. This information is to outline your options for follow-up care. We provide all patients seen in our emergency department with a follow-up referral. The need for follow-up, as well as the timing and circumstances, are variable depending upon the specifics of your emergency department visit. If you don't have a primary care physician on staff, we will provide you with a referral. We always advise you to contact your personal physician following an emergency department visit to inform them of the circumstance of the visit and for follow-up with them and/or the need for any referrals to a consulting specialist. The emergency department will also refer you to a specialist when appropriate. This referral assures that you have the opportunity for follow-up care with a specialist. All of these measure are taken in an effort to provide you with optimal care, which includes your follow-up. Under all circumstances we always encourage you to contact your private physician who remains a resource for coordinating your care. When calling for follow-up care, please make the office aware that this follow-up is from your recent emergency room visit. If for any reason you are refused follow-up, please contact the [facility] Emergency Department at and asked to speak to the emergency department charge nurse. [facility] [address] [place] [id number] [facility] [address] [place] [id number] 1. Encourage small but frequent sips of fluid to prevent dehydration. 2. Follow-up with primary care provider as discussed. Return to the ED as needed as discussed. Sepsis Event Note (ED) - Evaluation Sepsis Screening Result: No Definite Risk - Focused Exam Vital Signs: Vital Signs Temp Pulse Resp BP Pulse Ox 10/15/20 17:43 98 F 80 119/71 96 10/15/20 15:23 97.4 F 83 17 145/92 H 100
[2020-10-15 17:44] VITALS: BP 119/71; PULSE 80
== END 2020-10-15 17:43 | disposition home or self-care (01) ==
LOC: MW.ED 14:27
DX: R42 Dizziness and giddiness (principal); E66.9 Obesity, unspecified; Z68.30 Body mass index [BMI] 30.0-30.9, adult
CPT/HCPCS: 36415; 71045; 71045-26; 80053; 81003; 81025; 82947; 84443; 84484; 85025; 93005; 99284-25